=== PATIENT | female | born 1940 | race Caucasian/White ===

== ENCOUNTER 2019-11-19 20:33 | Emergency (ER) | payer OTHER ==
[~2019-11-19] VITALS: Ht 152.4 cm; Wt 63.5 kg
[2019-11-19 20:33] VITALS: BP_SYST 146
--- NOTE | 2019-11-19 20:50 | NUR ---
Placed in room 3 . Placed on patient monitor, blood pressure machine and pulse oximeter. To gown for exam. Side rails up. Report given to JIM Spain.
--- NOTE | 2019-11-19 21:05 | NUR ---
Dr. Zaldivar bedside for pt eval
[2019-11-19] MEDS ORDERED: NACL 0.9% 1,000 ML IV ONE (21:07)
[2019-11-19] MEDS ORDERED: MAG HYDROX/AL HYDROX/SIMETH 30 ML, DICYCLOMINE HCL 20 MG, LIDOCAINE VISCOUS 2% 15ML (PO... PO ONE ×3 (21:15)
[2019-11-19 21:29] LABS: BASOPHILS % (AUTO) 0.8 % (0.0-2.0); EOSINOPHILS # (AUTO) 0.1 K/uL (0.0-0.4); EOSINOPHILS % (AUTO) 1.7 % (0.0-4.0); HEMATOCRIT 38.4 % (36-48); HEMOGLOBIN 12.7 g/dL (12.0-16.0); LYMPHOCYTES # (AUTO) 1.7 K/uL (1.0-5.5); LYMPHOCYTES % (AUTO) 27.1 % (20.5-51.5); MEAN CORPUSCULAR HEMOGLOBIN 30 pg (27-31); MEAN CORPUSCULAR HGB CONC 33 % (32-36); MEAN CORPUSCULAR VOLUME 91 fL (79.0-98.0); MONOCYTES # (AUTO) 0.6 K/uL (0.0-1.0); MONOCYTES % (AUTO) 10.4 % (1.7-9.3); NEUTROPHILS # (AUTO) 3.7 K/uL (1.8-7.7); PLATELET COUNT (AUTO) 215 K/uL (130-430); RED BLOOD CELL COUNT(AUTO) 4.24 MIL/uL (4.2-6.2); RED CELL DISTRIBUTION WIDTH 13.5 % (9.0-15.0); WHITE BLOOD COUNT (AUTO) 6.2 K/uL (4.8-10.8)
--- NOTE | 2019-11-19 21:35 | NUR ---
Pt BIB family to ED C/O gradual onset, mild mid sternal chest pressure radiating to her epigastric region. Patient has a history of GERD, hypertension, high cholesterol and diabetes. Patient recently had the removal of basal cell carcoma on her nose 1 week ago. Admits that it made her anxious No other complaints and or injuries noted VSS no s/s of acute distress Resting on gurney rails up
[2019-11-19 21:43] LABS: ANION GAP 13 (5-15); CALCIUM 9.2 mg/dL (8.4-11.0); CHLORIDE 101 mmol/L (98-107); CREATININE 0.85 mg/dL (0.55-1.30); GLUCOSE 202 mg/dL (70-99); POTASSIUM 3.9 mmol/L (3.5-5.1); SODIUM SERUM 139 mmol/L (136-145); UREA NITROGEN, BLOOD 21 mg/dL (8-21)
--- NOTE | 2019-11-19 21:48 | NUR ---
Portable X Ray bedside, well tolerated
[2019-11-19 21:49] LABS: ALANINE AMINOTRANSFERASE 26 U/L (12-78); ALBUMIN 4.2 g/dL (3.4-4.8); AMYLASE 31 U/L (0-100); ASPARTATE AMINOTRANSFERASE 20 U/L (10-37); LIPASE 174 U/L (73-393); TOTAL BILIRUBIN 0.2 mg/dL (0.0-1.0)
[2019-11-19 22:17] LABS: BILIRUBIN,URINE NEGATIVE (NEGATIVE); BLOOD, URINE NEGATIVE (NEGATIVE); CLARITY/URINE CLEAR (CLEAR); COLOR,URINE YELLOW (YELLOW); GLUCOSE,URINE NEGATIVE (NEGATIVE); KETONES,URINE NEGATIVE (NEGATIVE); LEUKOCYTE ESTERASE ,URINE NEGATIVE (NEGATIVE); NITRITE, URINE NEGATIVE (NEGATIVE); PROTEIN URINE NEGATIVE (NEGATIVE); UROBILINOGEN,URINE 0.2 (0.2-1.0)
[2019-11-19 22:30] LABS: PROTHROMBIN TIME 9.8 SECS (9.5-12.5)
--- NOTE | 2019-11-19 22:50 | NUR ---
Dr. Zaldivar bedside for pt update
[2019-11-19 23:04] VITALS: BP_SYST 135
--- NOTE | 2019-11-19 23:04 | NUR ---
Patient given written and verbal discharge instructions and verbalizes understanding. ER MD discussed with patient the results and treatment provided. Patient in stable condition. ID arm band removed. IV catheter removed intact and dressing applied, no active bleeding. Rx of Sucralfate given. Patient educated on pain management and to follow up with PMD. Pain Scale 0/10 Opportunity for questions provided and answered. Medication side effect fact sheet provided.
== END 2019-11-19 23:04 | disposition home or self-care (01) ==
LOC: SED 20:33
DX: K21.9 Gastro-esophageal reflux disease without esophagitis (principal); I10 Essential (primary) hypertension; E11.9 Type 2 diabetes mellitus without complications
CPT/HCPCS: 36415; 71045; 80053; 81003; 82150; 82550; 83605; 83690; 84484; 85025; 85610; 85730; 87040; 93005; 99284; J2001; J7030

== ENCOUNTER 2022-03-31 15:37 | Emergency (ER) | payer OTHER ==
[~2022-03-31] VITALS: Ht 152.4 cm; Wt 63.5 kg
[2022-03-31 15:37] VITALS: BP_SYST 120
--- NOTE | 2022-03-31 15:37 | NUR ---
BROUGHT IN BY [facility] AND PLACED IN BED #8. TRIAGED AND REPORT GIVEN TO KIRA
--- NOTE | 2022-03-31 15:44 | NUR ---
PT BROUGHT TO ROOM 8 AT THIS TIME
--- NOTE | 2022-03-31 15:44 | NUR ---
81YO F BIBA FROM HOME WITH C/O COUGH, CONGESTION, WEAKNESS AND DIZZINESS X 4 DAYS. PT TESTED POSITIVE FOR COVID 4 DAYS AGO. DENIES FEVER. IN ED, VSS. NOT IN DISTRESS. CLEAR BREATH SOUNDS. ERMD MADE AWARE OF PT STATUS. PMH: DM, CKD
--- NOTE | 2022-03-31 15:50 | NUR ---
COVID SWAB DONE. WALKED TO LAB BY TANISHA GAN
--- NOTE | 2022-03-31 15:50 | NUR ---
XRAY AT BEDSIDE
--- NOTE | 2022-03-31 16:15 | NUR ---
DR CASTLE AT BEDSIDE FOR EVALUATION
--- NOTE | 2022-03-31 16:17 | NUR ---
DR CASTLE OUT TO WAITING ROOM TO SPEAK WITH PTS DAUGHTER.
[2022-03-31 16:29] LABS: HEMATOCRIT 33.7 % (36-48); HEMOGLOBIN 11.5 g/dL (12.0-16.0); MEAN CORPUSCULAR HGB CONC 34 % (32-36); PLATELET COUNT (AUTO) 175 K/uL (130-430); RED BLOOD CELL COUNT(AUTO) 3.81 MIL/uL (4.2-6.2); RED CELL DISTRIBUTION WIDTH 13.1 % (9.0-15.0)
[2022-03-31] MEDS ORDERED: NACL 0.9% 1,000 ML IV ONE (16:30)
[2022-03-31 16:38] LABS: ANION GAP 14 (5-15); CALCIUM 8.4 mg/dL (8.4-11.0); CHLORIDE 95 mmol/L (98-107); CREATININE 1.58 mg/dL (0.55-1.30); GLUCOSE 314 mg/dL (70-99); POTASSIUM 3.9 mmol/L (3.5-5.1); SODIUM SERUM 130 mmol/L (136-145); UREA NITROGEN, BLOOD 25 mg/dL (8-21)
[2022-03-31 16:43] LABS: ALANINE AMINOTRANSFERASE 17 U/L (12-78); ALBUMIN 3.6 g/dL (3.4-4.8); ASPARTATE AMINOTRANSFERASE 24 U/L (10-37); BASOPHILS # (AUTO) 0.1 K/uL (0.0-0.2); BASOPHILS % (AUTO) 1.2 % (0.0-2.0); EOSINOPHILS % (AUTO) 0.9 % (0.0-4.0); LYMPHOCYTES # (AUTO) 1.3 K/uL (1.0-5.5); LYMPHOCYTES % (AUTO) 22.9 % (20.5-51.5); MEAN CORPUSCULAR HEMOGLOBIN 30 pg (27-31); MEAN CORPUSCULAR VOLUME 88 fL (79.0-98.0); MONOCYTES # (AUTO) 0.9 K/uL (0.0-1.0); MONOCYTES % (AUTO) 17.1 % (1.7-9.3); NEUTROPHILS # (AUTO) 3.2 K/uL (1.8-7.7); NEUTROPHILS % (AUTO) 57.9 % (40.0-70.0); TOTAL BILIRUBIN 0.3 mg/dL (0.0-1.0); WHITE BLOOD COUNT (AUTO) 5.5 K/uL (4.8-10.8)
[2022-03-31 17:11] LABS: BILIRUBIN,URINE NEGATIVE (NEGATIVE); BLOOD, URINE NEGATIVE (NEGATIVE); COLOR,URINE YELLOW (YELLOW); GLUCOSE,URINE NEGATIVE (NEGATIVE); KETONES,URINE TRACE (NEGATIVE); LEUKOCYTE ESTERASE ,URINE NEGATIVE (NEGATIVE); NITRITE, URINE NEGATIVE (NEGATIVE); PH,URINE 5.5 (5.0-8.0); PROTEIN URINE 1+ (NEGATIVE); UROBILINOGEN,URINE 0.2 (0.2-1.0)
[2022-03-31 17:27] LABS: CLARITY/URINE HAZY (CLEAR)
[2022-03-31 17:52] LABS: BACTERIA,URINE FEW /HPF (None Seen); HYALINE CASTS, URINE 0-10 /LPF (None Seen); RBC,URINE 0-3 /HPF (0-3); WBC,URINE 0-3 /HPF (0-3)
[2022-03-31] MEDS ORDERED: ED NON STOCK ORDER 1 EA MISC IV ONE (18:15)
[2022-03-31] MEDS ORDERED: BEBTELOVIMAB (EUA) 175 MG/2 ML VIAL IV ONE (18:16)
[2022-03-31 18:46] VITALS: BP_SYST 120
--- NOTE | 2022-03-31 18:47 | NUR ---
Patient given written and verbal discharge instructions and verbalizes understanding. ER MD discussed with patient the results and treatment provided. Patient in stable condition. ID arm band removed. IV catheter removed intact and dressing applied, no active bleeding. NO Rx given. Patient educated on pain management and to follow up with PMD. Pain Scale 0. Opportunity for questions provided and answered. Medication side effect fact sheet provided.
== END 2022-03-31 18:46 | disposition home or self-care (01) ==
LOC: SED 15:37
DX: U07.1 COVID-19 (principal); E86.0 Dehydration; R05.9 Cough, unspecified; E11.9 Type 2 diabetes mellitus without complications; I10 Essential (primary) hypertension; K21.9 Gastro-esophageal reflux disease without esophagitis
CPT/HCPCS: 36415; 71045; 80053; 81000; 83605; 85025; 87040; 87426; 96361; 96374; 99284; J7030